=== PATIENT | female | born 1950 | race Caucasian/White ===

== ENCOUNTER 2016-08-29 01:09 | Inpatient (IN) | payer OTHER ==
[~2016-08-29] VITALS: Ht 172.7 cm; Wt 50.8 kg
[2016-08-29 07:12] LABS: ABSOLUTE BASOPHIL COUNT 0 /CUMM (0.0-0.2); ABSOLUTE EOSINOPHIL COUNT 0.1 /CUMM (0.0-0.7); ABSOLUTE GRANULOCYTE CT 3.8 /CUMM (1.4-6.5); ABSOLUTE LYMPH COUNT 0.4 /CUMM (1.2-3.4); ABSOLUTE MONOCYTE COUNT 0.5 /CUMM (0.10-0.60); BASOPHIL % 0.3 % (0.0-2.0); EOSINOPHIL % 1.9 % (0-5); GRANULOCYTE % 78.6 % (42.2-75.2); HEMATOCRIT 33.7 % (37-47); MEAN CORPUSCULAR HGB 27.9 PG (27.0-31.0); MEAN CORPUSCULAR HGB CONC 33.6 G/DL (33.0-37.0); MEAN PLATELET VOLUME 8.8 FL (7.4-10.4); PLATELET COUNT 93 /CUMM (130-400); RBC DISTRIBUTION WIDTH 16.8 % (11.5-14.5); RED BLOOD CELL CT 4.07 /CUMM (4.20-5.40); WHITE BLOOD CELL COUNT 4.8 /CUMM (4.8-10.8)
[2016-08-29 12:35] LABS: ABSOLUTE BASOPHIL COUNT 0 /CUMM (0.0-0.2); ABSOLUTE EOSINOPHIL COUNT 0 /CUMM (0.0-0.7); ABSOLUTE GRANULOCYTE CT 3.7 /CUMM (1.4-6.5); ABSOLUTE LYMPH COUNT 0.3 /CUMM (1.2-3.4); ABSOLUTE MONOCYTE COUNT 0.2 /CUMM (0.10-0.60); BASOPHIL % 0.2 % (0.0-2.0); EOSINOPHIL % 0.6 % (0-5); GRANULOCYTE % 86.7 % (42.2-75.2); HEMATOCRIT 32.1 % (37-47); MEAN CORPUSCULAR HGB 27.9 PG (27.0-31.0); MEAN CORPUSCULAR HGB CONC 33.7 G/DL (33.0-37.0); MEAN CORPUSCULAR VOLUME 82.7 FL (81.0-99.0); MEAN PLATELET VOLUME 8.1 FL (7.4-10.4); PLATELET COUNT 86 /CUMM (130-400); RBC DISTRIBUTION WIDTH 17.2 % (11.5-14.5); RED BLOOD CELL CT 3.88 /CUMM (4.20-5.40); WHITE BLOOD CELL COUNT 4.2 /CUMM (4.8-10.8)
--- NOTE | 2016-08-29 13:20 | PN- General Surgery ---
Subjective Subjective: Postop check: I was called by the PACU nurse regarding patient's condition. She is diaphoretic, having palpitations, heart rate in the 130s and appeared irregular on the monitor after having an uneventful operative course. I evaluated the patient, she denies any chest pain. She does feel lightheaded and weak and noted intermittent palpitations. Patient states that she has been having palpitations while at rest intermittently for about a week, she has not seen or mentioned this to her primary care doctor previously. Her preop EKG was reviewed which was done this morning at our facility at 7 AM which shows A. fib/ flutter, 98 bpm, abnormal T waves diffusely. There are no previous EKGs available for comparison. Stat labs were ordered and stat EKG was ordered as well performed at 12:20 PM, sinus tachycardia at 120 bpm, questionable A. fib versus MAT with diffuse abnormal T waves. Patient received 1 L of IV fluids intraoperatively and is getting another liter in the recovery room, current blood pressure is 98/48, her symptoms improved while Trendelenburged. She was placed on a campus monitor in the postanesthesia care unit and her heart rate was noted to be in the high 70s to mid 80s and a normal sinus rhythm and then suddenly increased to 1:30/140 range and appeared irregular which correlated with patient's symptoms. The rapid irregular heartbeat is intermittent only lasted for 5-7 seconds and then resolves Objective Vital Signs and I&Os Intake & Output 08/29 1600 08/29 0800 08/29 0000 08/28 1600 08/28 0800 08/28 0000 Intake Total Output Total Balance Patient 105 lb Weight Physical Exam: Well-developed well-nourished no apparent distress. HEENT: Atraumatic, extraocular motion intact Neck: Supple, no lymphadenopathy Respiratory: No respiratory distress Heart: Regular rate and rhythm with periods of irregularity Abdomen: Midline incisional dressing is clean dry and intact, hypoactive bowel sounds Extremities: No edema, no calf pain Neuro: Alert and oriented x3 Psych: Mood affect normal, normal memory normal judgment. Skin: Diaphoretic, no rash Assessment/Plan Assessment/Plan Postop day #0 status post open ventral/incisional hernia repair, complicated by tachycardic arrhythmia, questionable new onset intermittent A. fib versus MAT. Patient may have had a recent history of this which was exacerbated by stress from the surgery. Discussed with cardiology, Dr. Bib Toth, recommends echo and he will consult on the patient, recommends telemetry monitoring at least overnight. We will admit the patient to telemetry Regular diet Pain medication as needed Reenforce dressing as needed and change postop day 2 Continue IV fluids until tolerating adequate by mouth Heparin for DVT prophylaxis Dw Dr Long Core Measures/Miscellaneous Venous Thromboembolism VTE Risk Factors: Age > 40, Surgery VTE Contraindications: No Contraindications VTE Diagnosis: No Beta Diogo Is Beta Diogo a Home Med? No Antibiotics Is Patient on Antibiotics? No
[2016-08-29 15:31] VITALS: BP 80/40
[2016-08-29 17:09] VITALS: BP 82/48
[2016-08-29 19:00] VITALS: BP 80/48
[2016-08-29 21:02] VITALS: BP 90/50
--- NOTE | 2016-08-29 21:02 | NUR ---
INFORMED SURGICAL PA CORONA THAT PT HAS HAD APPOX 600 ML INTAKE OF FLUIDS THUS FAR S/P SURGERY. VOIDING ADEQUATELY IN TOILET. PER SURGICAL PA, WILL KEEP IVF UNTIL AM DUE TO HYPOTENSION (SBP HAS BEEN 80-90).
--- NOTE | 2016-08-29 21:03 | Admission Core Measures ---
Admission Lab Results I reviewed the following labs: Laboratory Tests 08/29 08/29 1223 0649 Chemistry Sodium (137 - 145 mmol/L) 137 Potassium (3.5 - 5.1 mmol/L) 3.9 Chloride (98 - 107 mmol/L) 102 Carbon Dioxide (22 - 30 mmol/L) 26 Anion Gap (5 - 16) 10 BUN (7 - 17 mg/dL) 19 H Creatinine (0.5 - 1.0 mg/dL) 0.8 Estimated GFR (>60 ml/min) > 60 BUN/Creatinine Ratio (7 - 25 %) 23.8 Troponin I (< 0.11 ng/ml) < 0.01 TSH (0.270 - 4.200 uIU/mL) 4.370 H Thyroxine (T4) (4.5 - 10.9 ug/dL) 14.0 H Total T3 (0.97 - 1.69 ng/mL) Pending Hematology CBC w Diff MAN DIFF ORDERED NO MAN DIFF REQ WBC (4.8 - 10.8 /CUMM) 4.2 L 4.8 RBC (4.20 - 5.40 /CUMM) 3.88 L 4.07 L Hgb (12.0 - 16.0 G/DL) 10.8 L 11.3 L Hct (37 - 47 %) 32.1 L 33.7 L MCV (81.0 - 99.0 FL) 82.7 83.0 MCH (27.0 - 31.0 PG) 27.9 27.9 RDW (11.5 - 14.5 %) 17.2 H 16.8 H Plt Count (130 - 400 /CUMM) 86 L 93 L MPV (7.4 - 10.4 FL) 8.1 8.8 Gran % (42.2 - 75.2 %) 86.7 H 78.6 H Lymphocytes % (20.5 - 51.1 %) 7.9 L 9.1 L Monocytes % (1.7 - 9.3 %) 4.6 10.1 H Eosinophils % (0 - 5 %) 0.6 1.9 Basophils % (0.0 - 2.0 %) 0.2 0.3 Absolute Granulocytes (1.4 - 6.5 /CUMM) 3.7 3.8 Segmented Neutrophils (42.2 - 75.2 %) 66 Band Neutrophils (0.0 - 5.0 %) 16 H Absolute Lymphocytes (1.2 - 3.4 /CUMM) 0.3 L 0.4 L Lymphocytes (20.5 - 51.1 %) 9 L Monocytes (1.7 - 9.3 %) 9 Absolute Monocytes (0.10 - 0.60 /CUMM) 0.2 0.5 Absolute Eosinophils (0.0 - 0.7 /CUMM) 0 0.1 Absolute Basophils (0.0 - 0.2 /CUMM) 0 0 Platelet Estimate (ADEQUATE) DECREASED Anisocytosis 1+ PUBS MCHC (33.0 - 37.0 G/DL) 33.7 33.6 Admission Meds I reviewed the following Meds: Current Medications Sig/Monisha Start time Last Medication Dose Stop Time Status Admin Acetaminophen/ 1 TAB Q4P PRN 08/29 1530 AC 08/29 Hydrocodone Bitart 2056 (Vicodin) Acetaminophen/ 2 TAB Q4P PRN 08/29 1530 AC Hydrocodone Bitart (Vicodin) Alprazolam 0.5 MG TID PRN 08/29 1600 AC (Xanax) 09/05 155 Dextrose/Sodium 1,000 ML .[id number] 08/29 1530 AC 08/29 Chloride 1530 (D5-Normal Saline) Docusate Sodium 100 MG DAILY NEEDED PRN 08/29 153 AC (Colace) Heparin Sodium 5,000 UNIT Q8 08/29 220 AC 08/29 (Porcine) 2050 Ibuprofen 400 MG Q6P PRN 08/29 1345 AC (Motrin) Ketorolac 15 MG Q8P PRN 08/29 1530 AC 08/29 Tromethamine 1827 (Toradol) Morphine Sulfate 2 MG Q1P PRN 08/29 1530 AC 08/29 (Morphine) 1602 Ondansetron HCl 4 MG Q6P PRN 08/29 1530 AC (Zofran) Polyethylene Glycol 17 GM DAILY NEEDED PRN 08/29 153 AC (Miralax) Promethazine HCl 12.5 MG Q6P PRN 08/29 1530 AC (Phenergen) 09/05 1329 Senna 374 MG AT BEDTIME NEED.. 08/29 153 AC (Senokot) Zolpidem Tartrate 10 MG AT BEDTIME NEED.. 08/29 220 AC (Ambien) Acute Coronary Syndrome Inclusion Criteria ACS Diagnosis No Inpatient Core Measures LDL Reminder: If No, please order W/I first 24hr of stay Congestive Heart Failure Inclusion Criteria CHF Diagnosis No Cerebrovascular accident Inclusion Criteria CVA/TIA Diagnosis No Inpatient Core Measures Bedside Swallow Eval Reminder: If BSE failed, place ST order Antithrombotic Reminder: Order Antithrombotic Medication by end of day 2 Antithrombotic Reminder: Document Reason Antithrombotic Not ordered by end of day 2 AFIB/Flutter Reminder: If Present, add to problem list AFIB/Flutter Reminder: Order Anticoag Medication for pts with AFIB/Flutter Atherosclerosis Reminder: If Present, add to problem list LDL Reminder: If No, please order W/I first 24hr of stay PT Order Reminder: If No, please order Venous thromboembolism Inpatient Core Measures VTE Risk Factors: Age > 40, [facility] prophylaxis d/t No contraindications No VTE Pharm Prophylaxis d/t No contraindications Inclusion Criteria - Per Current guidelines, there needs to be overlap - treatment for the first 5 days of Warfarin therapy. - Parenteral Anticoagulation (IV or SC) needs to be - given along with Warfarin therapy. VTE Diagnosis No VTE Type NONE VTE Confirmed by (Test) NONE Problem List As ranked by this Provider includes Assessment & Plan 1. Ventral hernia 2. Arrhythmia, atrial
--- NOTE | 2016-08-29 21:06 | Patient Discharge Instructions ---
Discharge Instructions General Discharge Information You were seen/treated for: Open ventral hernia repair with mesh Admission for cardiac arrhythmia You had these procedures: See above Watch for these problems: Worsening abdominal pain, nausea, vomiting, fever greater than 101, discharge from the wound, redness around the wound or tenderness around the wound. Chest pain palpitations feeling as if you're going to pass out Call Surgeon to remove: [place] (10 days) Do not soak the wound: Yes No bath, but you may shower: Yes Other wound care: Daily dry sterile dressing changes Special Instructions: Please follow up with DR. Coty Ferrer for thyroid studies, please have blood work done prior to seeing her. Blood work should be done on 09/07/2016. Please contact DR. Reese Marcus for cardiology follow up. At time of discharge, please contact his office to arrange this appointment. Diet Continue normal diet: Yes Activity Full Activity/No Limits: No Activity Self Limited: Yes Pounds, do NOT lift more than: 10 Acute Coronary Syndrome Inclusion Criteria At DC or during hospital stay patient has or had the following: ACS DIAGNOSIS No Discharge Core Measures Meds if any: Prescribed or Continued at Discharge Meds if any: NOT Prescribed or Continued at Discharge Congestive Heart Failure Inclusion Criteria At DC or during hospital stay patient has or had the following: CHF DIAGNOSIS No Discharge Core Measures Meds if any: Prescribed or Continued at Discharge Meds if any: NOT Prescribed or Continued at Discharge Cerebrovascular accident Inclusion Criteria At DC or during hospital stay patient has or had the following: CVA/TIA Diagnosis No Discharge Core Measures Meds if any: Prescribed or Continued at Discharge Meds if any: NOT Prescribed or Continued at Discharge Venous thromboembolism Inclusion Criteria VTE Diagnosis No VTE Type NONE VTE Confirmed by (Test) NONE Discharge Core Measures - Per Current guidelines, there needs to be overlap - treatment for the first 5 days of Warfarin therapy. - If discharged on Warfarin prior to 5 days of - overlap therapy, the patient will need to be - assessed for post discharge needs including - *Post discharge parental anticoagulation - *Warfarin and/or parental anticoagulation education - *Follow up date to check INR post discharge At least 5 days overlap therapy as Inpatient No Meds if any: Prescribed or Continued at Discharge Note: Overlap Therapy is Warfarin and Anticoagulant Meds if any: NOT Prescribed or Continued at Discharge
[2016-08-29] MEDS ORDERED: XANAX0.5 M1 PO (21:07)
[2016-08-29] MEDS ORDERED: AMBIEN10 M1 PO (21:07)
[2016-08-29 23:49] VITALS: BP 80/60
--- NOTE | 2016-08-30 00:34 | NUR ---
PATIENT HEART RATE 110-118, VSS, AFEBRILE, DENIES ANY PAIN. REPORTS HISTORY OF ANXIETY AND THAT SHE FEELS ANXIOUS AT CURRENT. NOTED THAT PATIENT TAKES AMBIEN AT BEDTIME FOR SLEEP, PREFERS TO TAKE AMBIEN INSTEAD OF ALPRAZOLAM AT THIS TIME. AMBIEN GIVEN, HEART DECREASING TO 90S. WILL CONTINUE TO MONITOR
--- NOTE | 2016-08-30 00:45 | NUR ---
SURGICAL SHE JETER MADE AWARE OF PATIENT'S ELEVATED HEART RATE. NO CHANGES AT THIS TIME
[2016-08-30 04:03] VITALS: BP 96/52
--- NOTE | 2016-08-30 05:21 | NUR ---
SURG SHE BABB AT BEDSIDE, ADMINISTERD 5MG IV LOPRESSOR FOR HEART RATE 110S-120S. RATE NOW 100-110 AFTER ADMINISTRATION. PATIENT IS ASYMPTOMATIC, SHE STATES THAT HEART RATE OK IF <120, CALL IF HR >120BPM. EKG PERFORMED WHICH SHOWS NSR. NO CHANGES TO POC AT THIS TIME, WILL CONTIUE TO MONITOR.
--- NOTE | 2016-08-30 05:42 | PN- General Surgery ---
See Addendum Subjective Subjective: No acute events overnight until approximately 4:40 AM, I was called by the nurse due to sudden onset of tachycardia and a 10-12 beat run of nonsustained V. tach. this was reviewed on the rhythm strip by myself. An EKG was ordered stat. Patient was evaluated, she remained asymptomatic throughout the night. She denies any palpitations, chest pain, nausea, vomiting or diaphoresis Objective Vital Signs and I&Os Vital Signs Date Time Temp Pulse Resp B/P B/P Pulse O2 O2 Flow FiO2 Mean Ox Delivery Rate 08/30 0403 97.8 112 18 96/52 97 Nasal 2.0L Cannula 08/30 0000 96 Nasal 2.0L Cannula 08/29 2349 99.1 111 16 80/60 93 Room Air 08/29 2102 98.1 115 16 90/50 92 Room Air 08/29 1900 98.7 108 18 80/48 95 08/29 1709 97.8 71 16 82/48 95 Nasal 2.0L Cannula 08/29 1531 97.4 86 20 80/40 99 Nasal 4.0L Cannula 08/29 1500 95 Nasal 2.0L Cannula Intake & Output 08/30 0800 08/30 0000 08/29 1600 08/29 0800 08/29 0000 08/28 1600 Intake Total 1200 Output Total 3 Balance 1197 Intake, IV 600 Intake, Oral 600 Output, Other 3 Patient 112 lb 105 lb Weight Weight Reported by Patient Measurement Method Physical Exam: Well-developed well-nourished no apparent distress. HEENT: Atraumatic, extraocular motion intact Neck: Supple, no lymphadenopathy Heart: Tachycardic, slightly irregular Respiratory: No respiratory distress, lungs clear to auscultation Abdomen: Soft, moderate incisional tenderness, nondistended, hypoactive bowel sounds, small amount of staining noted on the dressing Extremities: No edema, no calf pain Neuro: Alert and oriented x3 Psych: Mood affect normal, normal memory normal judgment. Skin: Warm and dry, no rash on exposed skin Results Last 48 Hours of Labs: Laboratory Tests 08/29 08/29 1223 0649 Chemistry Sodium (137 - 145 mmol/L) 137 Potassium (3.5 - 5.1 mmol/L) 3.9 Chloride (98 - 107 mmol/L) 102 Carbon Dioxide (22 - 30 mmol/L) 26 Anion Gap (5 - 16) 10 BUN (7 - 17 mg/dL) 19 H Creatinine (0.5 - 1.0 mg/dL) 0.8 Estimated GFR (>60 ml/min) > 60 BUN/Creatinine Ratio (7 - 25 %) 23.8 Troponin I (< 0.11 ng/ml) < 0.01 TSH (0.270 - 4.200 uIU/mL) 4.370 H Thyroxine (T4) (4.5 - 10.9 ug/dL) 14.0 H Total T3 (0.97 - 1.69 ng/mL) 1.01 Hematology CBC w Diff MAN DIFF ORDERED NO MAN DIFF REQ WBC (4.8 - 10.8 /CUMM) 4.2 L 4.8 RBC (4.20 - 5.40 /CUMM) 3.88 L 4.07 L Hgb (12.0 - 16.0 G/DL) 10.8 L 11.3 L Hct (37 - 47 %) 32.1 L 33.7 L MCV (81.0 - 99.0 FL) 82.7 83.0 MCH (27.0 - 31.0 PG) 27.9 27.9 RDW (11.5 - 14.5 %) 17.2 H 16.8 H Plt Count (130 - 400 /CUMM) 86 L 93 L MPV (7.4 - 10.4 FL) 8.1 8.8 Gran % (42.2 - 75.2 %) 86.7 H 78.6 H Lymphocytes % (20.5 - 51.1 %) 7.9 L 9.1 L Monocytes % (1.7 - 9.3 %) 4.6 10.1 H Eosinophils % (0 - 5 %) 0.6 1.9 Basophils % (0.0 - 2.0 %) 0.2 0.3 Absolute Granulocytes (1.4 - 6.5 /CUMM) 3.7 3.8 Segmented Neutrophils (42.2 - 75.2 %) 66 Band Neutrophils (0.0 - 5.0 %) 16 H Absolute Lymphocytes (1.2 - 3.4 /CUMM) 0.3 L 0.4 L Lymphocytes (20.5 - 51.1 %) 9 L Monocytes (1.7 - 9.3 %) 9 Absolute Monocytes (0.10 - 0.60 /CUMM) 0.2 0.5 Absolute Eosinophils (0.0 - 0.7 /CUMM) 0 0.1 Absolute Basophils (0.0 - 0.2 /CUMM) 0 0 Platelet Estimate (ADEQUATE) DECREASED Anisocytosis 1+ PUBS MCHC (33.0 - 37.0 G/DL) 33.7 33.6 Assessment/Plan Assessment/Plan Postoperative day #1 status post open ventral hernia repair, complicated by postoperative arrhythmia, A. fib versus MAT. Patient currently asymptomatic and did not have any significant arrhythmias overnight until a run of nonsustained V. tach and persistent tachycardia to approximately 120 bpm afterwards. Stat EKG shows sinus tachycardia at 118, nonspecific ST-T wave changes, no sniffing a change from previous EKG. There are abnormal and consistent P waves throughout her EKG which raised the suspicion for A. fib versus MAT. She was given 5 mg of Lopressor IV push by myself at the bedside, heart rate remained in the 90-110 range after this and patient remained asymptomatic, appears to be more of a sinus rhythm on the rhythm strip. We'll continue to monitor. Cardiology consult pending, echocardiogram pending, discussed with Dr. Toth Abnormal thyroid function testing with tachycardia: Endocrine consult pending, discussed with Dr. helton Regular diet Heparin subcutaneous GI prophylaxis Pain medication as needed DC IV fluids Dressing change tomorrow Continue telemetry monitoring Core Measures/Miscellaneous Venous Thromboembolism VTE Risk Factors: Age > 40, Surgery VTE Contraindications: No Contraindications VTE Diagnosis: No VTE Type: NONE VTE Confirmed by (Test): NONE Beta Diogo Is Beta Diogo a Home Med? No Antibiotics Is Patient on Antibiotics? No
--- NOTE | 2016-08-30 08:06 | ECHOCARDIOGRAM REPORT ---
ROHAN GREY Age: 65 : 1950 Gender: F Exam Date: 08/29/2016 18:50 Exam Location: [address] Ht (in): 68 Wt (lb): 105 BSA: 1.49 BP: 82 / 48 Ordering Physician: ONUR BABB PA Referring Physician: ONUR BABB PA Technologist: Agustina Castillo [facility] Room Number: [id number] Indications: ARRHYTHMIAS Rhythm: Sinus Technical Quality: good FINDINGS Left Ventricle Normal global left ventricular size, wall thickness, systolic function with no obvious regional wall motion abnormalities. Right Ventricle Normal right ventricular size and function. Right Atrium Normal right atrial size. Left Atrium Normal left atrial size. Mitral Valve Mitral valve normal in structure and function. Trace to mild mitral regurgitation. Aortic Valve Aortic valve is normal in structure and function. Tricuspid Valve Tricuspid valve is normal in structure and function. Trace to mild tricuspid regurgitation. Right ventricular systolic pressure estimated to be at upper limits of normal at 35 mmHg. Pulmonic Valve Pulmonic valve not well visualized, grossly normal. Pericardium No pericardial effusion. Great Vessels Normal size aortic root. CONCLUSIONS Normal left and right ventricular systolic function. No significant valvular abnormalities noted. Andrew Acosta M.D. (Electronically Signed) Final Date: 30 August 2016 08:05 MEASUREMENTS (Male / Female) Normal Values 2D ECHO LV Diastolic Diameter PLAX 3.4 cm 4.2 - 5.9 / 3.9 - 5.3 cm LV Systolic Diameter PLAX 2.2 cm 2.1 - 4.0 cm LV Fractional Shortening PLAX 35.3 % 25 - 46 % LV Ejection Fraction 2D Teich 65.8 % IVS Diastolic Thickness 0.9 cm LVPW Diastolic Thickness 0.9 cm LV Relative Wall Thickness 0.5 RV Internal Dim ED PLAX 2.5 cm 1.9 - 3.8 cm LVOT Diameter 2.1 cm Aortic Root Diameter 3.0 cm LA Systolic Diameter LX 2.8 cm 3.0 - 4.0 / 2.7 - 3.8 cm LA Volume 32.0 cm 18 - 58 / 22 - 52 cm DOPPLER AV Peak Velocity 155.0 cm/s AV Peak Gradient 9.6 mmHg AV Mean Velocity 104.0 cm/s AV Mean Gradient 5.0 mmHg AV Velocity Time Integral 27.1 cm LVOT Peak Velocity 138.0 cm/s LVOT Peak Gradient 7.6 mmHg LVOT Mean Velocity 89.4 cm/s LVOT Mean Gradient 4.0 mmHg LVOT Velocity Time Integral 22.5 cm LVOT Stroke Volume 77.9 cm AV Area Cont Eq vti 2.9 cm AV Area Cont Eq pk 3.1 cm MV Peak Velocity 86.9 cm/s MV Peak Gradient 3.0 mmHg MV Mean Velocity 55.9 cm/s MV Mean Gradient 1.0 mmHg Mitral E Point Velocity 71.1 cm/s Mitral A Point Velocity 69.6 cm/s Mitral E to A Ratio 1.0 MV PHT Velocity 90.3 cm/s MV Deceleration [place] 353.0 cm/s MV Pressure Half Time 76.7 ms MV Area PHT 2.9 cm MV Deceleration Time 232.0 ms TR Peak Velocity 254.0 cm/s TR Peak Gradient 25.8 mmHg Right Atrial Pressure 5.0 mmHg Pulmonary Artery Systolic Pressu 30.8 mmHg Right Ventricular Systolic Press 30.8 mmHg LV E' Lateral Velocity 16.4 cm/s Mitral E to LV E' Lateral Ratio 4.3 LV E' Septal Velocity 11.9 cm/s Mitral E to LV E' Septal Ratio 6.0
[2016-08-30 08:12] VITALS: BP 92/54
--- NOTE | 2016-08-30 08:39 | Event Note ---
Event Note Event Note: See SHE Hernandez's note from this am. Pt in sinus rhythm, but tachy in 110s. Denies palpations, cp, sob, gallegos, dizziness. Says she feels slightly anxious and takes xanax at home "when this happens". Will give home dose xanax now. Dr. Toth's service recontacted to ensure consult received. May need additional IV cardiac meds to control heart rate if anxiolytic is no help. will closely follow on tele.
--- NOTE | 2016-08-30 09:33 | Cons- Endocrinology ---
General Information and HPI Consulting Request Date of Consult: 08/30/16 Requested By: surgical team Reason for Consult: abnormal thyroid function. Source of Information: patient, old records Exam Limitations: no limitations History of Present Illness: Patient underwent open ventral hernia repair on 08/29/2016 which is complicated by postoperative arrhythmia, A. fib versus MAT. Patient currently is asymptomatic. However, she had a run of nonsustained V. tach and persistent tachycardia to approximately 120 bpm afterwards this yolk spray drier. Blood work showed TSH 4.370, T4 14 and TT3 1.01. She doesn't have hx of thyroid disorders or positive family hx of thyroid disorders. But she has lost approximately 15 pounds over the winter without significant reason. Repeat TFT done this morning showed TSH 8.5, free T4 1.56 and TT3 1.02. Allergies/Medications Allergies: Coded Allergies: NO KNOWN ALLERGIES (10/20/13) NKDA PER ANTIBIOTIC ORDER SHEET OF 10/20/13 ([facility]) Home Med List: Alprazolam (Xanax) 0.5 MG TABLET 1 TAB PO TIDPRN PRN anxiety (Reported) Zolpidem Tartrate (Ambien) 10 MG TABLET 1 TAB PO QPMP PRN insomina (Reported) Review of Systems Review of Systems Constitutional: Reports: see HPI, unexplained weight loss. Cardiovascular: Reports: palpitations. Respiratory: Denies: short of breath. GI: Denies: abdominal pain. Genitourinary: Denies: discharge. Musculoskeletal: Denies: back pain. Hematologic/Endocrine: Reports: see HPI. 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 Home Services at Home: None Smoking Status: Current Everyday Smoker Exam & Diagnostic Data Last 24 Hrs of Vital Signs/I&O Vital Signs Date Time Temp Pulse Resp B/P B/P Pulse O2 O2 Flow FiO2 Mean Ox Delivery Rate 08/30 0812 99.1 116 18 92/54 92 Room Air 08/30 0542 120 96/54 08/30 0403 97.8 112 18 96/52 97 Nasal 2.0L Cannula 08/30 0000 96 Nasal 2.0L Cannula 08/29 2349 99.1 111 16 80/60 93 Room Air 08/29 2102 98.1 115 16 90/50 92 Room Air 08/29 1900 98.7 108 18 80/48 95 08/29 1709 97.8 71 16 82/48 95 Nasal 2.0L Cannula 08/29 1531 97.4 86 20 80/40 99 Nasal 4.0L Cannula 08/29 1500 95 Nasal 2.0L Cannula Intake & Output 08/30 1600 08/30 0800 08/30 0000 Intake Total 1200 1200 Output Total 700 3 Balance 500 1197 Intake, IV 600 600 Intake, Oral 600 600 Output, Other 3 Output, Urine 700 Physical Exam General Appearance: no apparent distress Neck: no thyromegaly Respiratory: lungs clear Cardiovascular: tachycardia Gastrointestinal: soft, non-tender Extremities: no edema Labs/Pablo Results: Laboratory Tests 08/30 08/30 08/30 0855 0610 0600 Chemistry Sodium Pending Potassium Pending Chloride Pending Carbon Dioxide Pending Anion Gap Pending BUN Pending Creatinine Pending BUN/Creatinine Ratio Pending Phosphorus Pending Magnesium Pending Troponin I (< 0.11 ng/ml) < 0.01 Cancelled TSH (0.270 - 4.200 uIU/mL) 8.500 H Free T4 (0.78 - 2.44 ng/dL) 1.56 Total T3 (0.97 - 1.69 ng/mL) 1.02 Hematology CBC w Diff Pending WBC Pending RBC Pending Hgb Pending Hct Pending MCV Pending MCH Pending RDW Pending Plt Count Pending MPV Pending PUBS MCHC Pending Immunology Thyroglobulin Antibody (< 61 U/mL) < 15 Thyroid Peroxidase Ab (< 61 U/mL) < 28 08/29 1223 Chemistry Sodium (137 - 145 mmol/L) 137 Potassium (3.5 - 5.1 mmol/L) 3.9 Chloride (98 - 107 mmol/L) 102 Carbon Dioxide (22 - 30 mmol/L) 26 Anion Gap (5 - 16) 10 BUN (7 - 17 mg/dL) 19 H Creatinine (0.5 - 1.0 mg/dL) 0.8 Estimated GFR (>60 ml/min) > 60 BUN/Creatinine Ratio (7 - 25 %) 23.8 Troponin I (< 0.11 ng/ml) < 0.01 TSH (0.270 - 4.200 uIU/mL) 4.370 H Thyroxine (T4) (4.5 - 10.9 ug/dL) 14.0 H Total T3 (0.97 - 1.69 ng/mL) 1.01 Hematology CBC w Diff MAN DIFF ORDERED WBC (4.8 - 10.8 /CUMM) 4.2 L RBC (4.20 - 5.40 /CUMM) 3.88 L Hgb (12.0 - 16.0 G/DL) 10.8 L Hct (37 - 47 %) 32.1 L MCV (81.0 - 99.0 FL) 82.7 MCH (27.0 - 31.0 PG) 27.9 RDW (11.5 - 14.5 %) 17.2 H Plt Count (130 - 400 /CUMM) 86 L MPV (7.4 - 10.4 FL) 8.1 Gran % (42.2 - 75.2 %) 86.7 H Lymphocytes % (20.5 - 51.1 %) 7.9 L Monocytes % (1.7 - 9.3 %) 4.6 Eosinophils % (0 - 5 %) 0.6 Basophils % (0.0 - 2.0 %) 0.2 Absolute Granulocytes (1.4 - 6.5 /CUMM) 3.7 Segmented Neutrophils (42.2 - 75.2 %) 66 Band Neutrophils (0.0 - 5.0 %) 16 H Absolute Lymphocytes (1.2 - 3.4 /CUMM) 0.3 L Lymphocytes (20.5 - 51.1 %) 9 L Monocytes (1.7 - 9.3 %) 9 Absolute Monocytes (0.10 - 0.60 /CUMM) 0.2 Absolute Eosinophils (0.0 - 0.7 /CUMM) 0 Absolute Basophils (0.0 - 0.2 /CUMM) 0 Platelet Estimate (ADEQUATE) DECREASED Anisocytosis 1+ PUBS MCHC (33.0 - 37.0 G/DL) 33.7 Assessment/Plan Assessment/Plan Patient underwent open ventral hernia repair on 08/29/2016 which is complicated by postoperative arrhythmia, A. fib versus MAT. Patient currently is asymptomatic. However, she had a run of nonsustained V. tach and persistent tachycardia to approximately 120 bpm afterwards this yolk spray drier. Blood work showed TSH 4.370, T4 14 and TT3 1.01. Repeat TFT done this morning showed TSH 8.5, free T4 1.56 and TT3 1.02 and her thyroid antibody panel is negative. She doesn't have hx of thyroid disorders or positive family hx of thyroid disorders. But she has lost approximately 15 pounds over the winter without significant reason. The abnormal TFT suggests either sick euthyroid changes vs primary hypothyroidism. At this point, the abnormal TFT is not the cause of patient's arrhythmia. However, I will continue monitoring TFT in 2-3 days to look for a trend. Consult Acknowledgment - Thank you for your consult request.
[2016-08-30 10:57] LABS: ABSOLUTE BASOPHIL COUNT 0 /CUMM (0.0-0.2); ABSOLUTE EOSINOPHIL COUNT 0.1 /CUMM (0.0-0.7); ABSOLUTE GRANULOCYTE CT 3.6 /CUMM (1.4-6.5); ABSOLUTE LYMPH COUNT 0.5 /CUMM (1.2-3.4); ABSOLUTE MONOCYTE COUNT 0.3 /CUMM (0.10-0.60); BASOPHIL % 0.2 % (0.0-2.0); EOSINOPHIL % 2.5 % (0-5); GRANULOCYTE % 79.6 % (42.2-75.2); MEAN CORPUSCULAR HGB 27.7 PG (27.0-31.0); MEAN CORPUSCULAR HGB CONC 33.8 G/DL (33.0-37.0); MEAN CORPUSCULAR VOLUME 82.1 FL (81.0-99.0); MEAN PLATELET VOLUME 9.3 FL (7.4-10.4); PLATELET COUNT 89 /CUMM (130-400); RBC DISTRIBUTION WIDTH 16.3 % (11.5-14.5); RED BLOOD CELL CT 3.65 /CUMM (4.20-5.40); WHITE BLOOD CELL COUNT 4.5 /CUMM (4.8-10.8)
--- NOTE | 2016-08-30 11:26 | Cons- Cardiology ---
General Information and HPI Consulting Request Date of Consult: 08/30/16 Requested By: MACY KATE,RAJEEV Younger Reason for Consult: Atrial fibrillation Source of Information: patient, old records Exam Limitations: no limitations History of Present Illness: The patient is a 65-year-old woman with a past medical history of CAD, tuberculosis, fibromyalgia and depression. She presented for a ventral hernia repair which she underwent on 08/29/2016; however, was noted to have paroxysms of a rapid irregular heart rate afterwards. The patient was subsequently transferred to telemetry and noted to have frequent paroxysms of likely multifocal atrial tachycardia as well as atrial fibrillation with heart rate responses of 120s. From a cardiac standpoint, the patient states she has had palpitations, productive mainly at rest past several years. Episodes last for several seconds and sedated with chest pains, dyspnea nor significant lightheadedness. She is otherwise active, states performing activity of greater than 6 METs equivalents (swimming, exercising, stairclimbing) without difficulty. She has not carried a diagnosis of atrial fibrillation in the past. The patient otherwise denies recent use of [id number] supplements or stimulating agents. She was noted to have a mild rise in TSH (8.5); however, following an endocrinology consult, this was not felt to be the cause of her fibrillation. The patient was given IV metoprolol due to underlying tachycardia and then reverted to sinus rhythm with a controlled heart rate. Allergies/Medications Allergies: Coded Allergies: NO KNOWN ALLERGIES (10/20/13) NKDA PER ANTIBIOTIC ORDER SHEET OF 10/20/13 ([facility]) Home Med List: Alprazolam (Xanax) 0.5 MG TABLET 1 TAB PO TIDPRN PRN anxiety (Reported) Zolpidem Tartrate (Ambien) 10 MG TABLET 1 TAB PO QPMP PRN insomina (Reported) Current Medications: Current Medications Sig/Monisha Start time Last Medication Dose Route Stop Time Status Admin Acetaminophen/ 1 TAB Q4P PRN 08/29 1530 AC 08/29 Hydrocodone Bitart PO 2056 Acetaminophen/ 2 TAB Q4P PRN 08/29 1530 AC Hydrocodone Bitart PO Alprazolam 0.5 MG TID PRN 08/29 1600 AC 08/30 PO 09/05 1559 0858 Cefazolin Sodium 1,000 MG ONCE 08/29 0000 DC IV 08/29 2359 Dextrose/Sodium 1,000 ML .[id number] 08/29 1530 DC 08/30 Chloride IV 0406 Docusate Sodium 100 MG DAILY NEEDED PRN 08/29 1530 AC PO Heparin Sodium 5,000 UNIT Q8 08/29 2200 AC 08/30 (Porcine) SC 0601 Hydromorphone HCl 2 MG .STK-MED ONE 08/29 1315 DC IM 08/29 1316 Ibuprofen 400 MG Q6P PRN 08/29 1345 AC PO Ketorolac 15 MG Q8P PRN 08/29 1530 AC 08/29 Tromethamine IV 1827 Metoprolol Tartrate 25 MG BID 08/30 1030 AC PO Metoprolol Tartrate 5 MG ONCE ONE 08/30 0545 DC 08/30 IV 08/30 0546 0542 Morphine Sulfate 2 MG Q1P PRN 08/29 1530 AC 08/30 IV 0857 Ondansetron HCl 4 MG Q6P PRN 08/29 1530 AC IV Polyethylene Glycol 17 GM DAILY NEEDED PRN 08/29 1530 AC PO Promethazine HCl 12.5 MG Q6P PRN 08/29 1530 AC IV 09/05 1329 Senna 374 MG AT BEDTIME NEED.. 08/29 1530 AC PO Zolpidem Tartrate 10 MG .STK-MED ONE 08/30 0017 DC PO 08/30 0018 Zolpidem Tartrate 10 MG AT BEDTIME NEED.. 08/29 2200 AC 08/30 PO 0017 Review of Systems Review of Systems: The review of systems is negative for chest pains nor lightheadedness. Palpitations are noted as above The remainder of the 14 point review of systems is noncontributory with the exception of above. 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 Home Services at Home: None Smoking Status: Current Everyday Smoker Exam & Diagnostic Data Vital Signs and I&O Vital Signs Date Time Temp Pulse Resp B/P B/P Pulse O2 O2 Flow FiO2 Mean Ox Delivery Rate 08/30 0812 99.1 116 18 92/54 92 Room Air 08/30 0542 120 96/54 08/30 0403 97.8 112 18 96/52 97 Nasal 2.0L Cannula 08/30 0000 96 Nasal 2.0L Cannula 08/29 2349 99.1 111 16 80/60 93 Room Air 08/29 2102 98.1 115 16 90/50 92 Room Air 08/29 1900 98.7 108 18 80/48 95 08/29 1709 97.8 71 16 82/48 95 Nasal 2.0L Cannula 08/29 1531 97.4 86 20 80/40 99 Nasal 4.0L Cannula 08/29 1500 95 Nasal 2.0L Cannula Intake & Output 08/30 1600 08/30 0800 08/30 0000 08/29 1600 08/29 0800 08/29 0000 Intake Total 1200 1200 Output Total 700 3 Balance 500 1197 Intake, IV 600 600 Intake, Oral 600 600 Output, Other 3 Output, Urine 700 Patient 112 lb Weight Weight Reported by Patient Measurement Method Physical Exam: General: Nontoxic, no apparent distress. HEENT: Sclera and conjunctiva within normal limits, without xanthelasmas. Neck: Carotids 2+ without bruits. Respiratory: Clear to auscultation, air movement is good, without accessory respiratory muscle use. Heart: Regular rate and rhythm, without murmurs, without JVD. Abdomen: Soft, nontender, no masses, normoactive bowel sounds. Extremities: Without clubbing, cyanosis, without edema. Neuro: Nonfocal exam, strength, 5 out of 5 Skin: Within normal limits without lesions. Psych: Mood and affect: Normal Labs/Pablo Results: Laboratory Tests 08/30 08/30 08/30 0855 0610 0600 Chemistry Sodium (137 - 145 mmol/L) 135 L Potassium (3.5 - 5.1 mmol/L) 3.9 Chloride (98 - 107 mmol/L) 101 Carbon Dioxide (22 - 30 mmol/L) 27 Anion Gap (5 - 16) 7 BUN (7 - 17 mg/dL) 18 H Creatinine (0.5 - 1.0 mg/dL) 0.8 Estimated GFR (>60 ml/min) > 60 BUN/Creatinine Ratio (7 - 25 %) 22.5 Phosphorus (2.5 - 4.5 mg/dL) 2.8 Magnesium (1.6 - 2.3 mg/dL) 1.1 L Troponin I (< 0.11 ng/ml) < 0.01 Cancelled TSH (0.270 - 4.200 uIU/mL) 8.500 H Free T4 (0.78 - 2.44 ng/dL) 1.56 Total T3 (0.97 - 1.69 ng/mL) 1.02 Hematology CBC w Diff NO MAN DIFF REQ WBC (4.8 - 10.8 /CUMM) 4.5 L RBC (4.20 - 5.40 /CUMM) 3.65 L Hgb (12.0 - 16.0 G/DL) 10.1 L Hct (37 - 47 %) 30.0 L MCV (81.0 - 99.0 FL) 82.1 MCH (27.0 - 31.0 PG) 27.7 RDW (11.5 - 14.5 %) 16.3 H Plt Count (130 - 400 /CUMM) 89 L MPV (7.4 - 10.4 FL) 9.3 Gran % (42.2 - 75.2 %) 79.6 H Lymphocytes % (20.5 - 51.1 %) 10.8 L Monocytes % (1.7 - 9.3 %) 6.9 Eosinophils % (0 - 5 %) 2.5 Basophils % (0.0 - 2.0 %) 0.2 Absolute Granulocytes (1.4 - 6.5 /CUMM) 3.6 Absolute Lymphocytes (1.2 - 3.4 /CUMM) 0.5 L Absolute Monocytes (0.10 - 0.60 /CUMM) 0.3 Absolute Eosinophils (0.0 - 0.7 /CUMM) 0.1 Absolute Basophils (0.0 - 0.2 /CUMM) 0 PUBS MCHC (33.0 - 37.0 G/DL) 33.8 Immunology Thyroglobulin Antibody (< 61 U/mL) < 15 Thyroid Peroxidase Ab (< 61 U/mL) < 28 08/29 08/29 1223 0649 Chemistry Sodium (137 - 145 mmol/L) 137 Potassium (3.5 - 5.1 mmol/L) 3.9 Chloride (98 - 107 mmol/L) 102 Carbon Dioxide (22 - 30 mmol/L) 26 Anion Gap (5 - 16) 10 BUN (7 - 17 mg/dL) 19 H Creatinine (0.5 - 1.0 mg/dL) 0.8 Estimated GFR (>60 ml/min) > 60 BUN/Creatinine Ratio (7 - 25 %) 23.8 Troponin I (< 0.11 ng/ml) < 0.01 TSH (0.270 - 4.200 uIU/mL) 4.370 H Thyroxine (T4) (4.5 - 10.9 ug/dL) 14.0 H Total T3 (0.97 - 1.69 ng/mL) 1.01 Hematology CBC w Diff MAN DIFF ORDERED NO MAN DIFF REQ WBC (4.8 - 10.8 /CUMM) 4.2 L 4.8 RBC (4.20 - 5.40 /CUMM) 3.88 L 4.07 L Hgb (12.0 - 16.0 G/DL) 10.8 L 11.3 L Hct (37 - 47 %) 32.1 L 33.7 L MCV (81.0 - 99.0 FL) 82.7 83.0 MCH (27.0 - 31.0 PG) 27.9 27.9 RDW (11.5 - 14.5 %) 17.2 H 16.8 H Plt Count (130 - 400 /CUMM) 86 L 93 L MPV (7.4 - 10.4 FL) 8.1 8.8 Gran % (42.2 - 75.2 %) 86.7 H 78.6 H Lymphocytes % (20.5 - 51.1 %) 7.9 L 9.1 L Monocytes % (1.7 - 9.3 %) 4.6 10.1 H Eosinophils % (0 - 5 %) 0.6 1.9 Basophils % (0.0 - 2.0 %) 0.2 0.3 Absolute Granulocytes (1.4 - 6.5 /CUMM) 3.7 3.8 Segmented Neutrophils (42.2 - 75.2 %) 66 Band Neutrophils (0.0 - 5.0 %) 16 H Absolute Lymphocytes (1.2 - 3.4 /CUMM) 0.3 L 0.4 L Lymphocytes (20.5 - 51.1 %) 9 L Monocytes (1.7 - 9.3 %) 9 Absolute Monocytes (0.10 - 0.60 /CUMM) 0.2 0.5 Absolute Eosinophils (0.0 - 0.7 /CUMM) 0 0.1 Absolute Basophils (0.0 - 0.2 /CUMM) 0 0 Platelet Estimate (ADEQUATE) DECREASED Anisocytosis 1+ PUBS MCHC (33.0 - 37.0 G/DL) 33.7 33.6 Assessment/Plan Assessment/Plan 65-year-old woman with a past medical history of CAD, tuberculosis, fibromyalgia and depression. She presented for a ventral hernia repair which she underwent on 08/29/2016; however, was noted to have paroxysms of a rapid irregular heart rate afterwards. The patient was subsequently transferred to telemetry and noted to have frequent paroxysms of likely multifocal atrial tachycardia as well as atrial fibrillation with heart rate responses of 120s. Atrial fibrillation: The patient describes episodes of palpitations occurring or several years which may likely represent long-standing paroxysmal atrial fibrillation. He had a good response with IV metoprolol and we will therefore initiate by mouth metoprolol at 25 mg by mouth twice a day. An echocardiogram was performed which demonstrated normal cardiac structure and function. The patient's [id number] score is 2 (age, female), and she would therefore benefit from full anticoagulation. An agent such as a request 5 mg by mouth twice a day may be used cleared by surgery. As the patient has suboptimal heart rate control, we will continue monitoring on telemetry for further 24 hours. Postop hernia repair: Continue treatment as per surgery Thank you for allowing us to participate in the care of your patient. Please do not hesitate to contact us further with any questions. Sincerely, Reese Marcus MD [facility] Consult Acknowledgment - Thank you for your consult request.
[2016-08-30 16:20] VITALS: BP 90/60
[2016-08-30 23:55] VITALS: BP 90/50
--- NOTE | 2016-08-31 06:56 | PN- Student ---
AKANKSHA CHOI 08/31/16 0651: Subjective Subjective: The patient reports being comfortable, denies any chest/abdominal pain, SOB, palpatations, headaches/dizziness, n/v. Is tolerating regular diet well. Has had one bowel movement overnight, is voiding and has been OOB to ambulate the floor multiple times last night. Is hoping to go home today. Objective Objective: Vital Signs Result Date Time Pulse Ox 92 08/30 2354 B/P 90/50 08/30 2354 O2 Delivery Nasal Cannula 08/30 2354 Temp 99.0 08/30 2354 Pulse 95 08/30 2354 Resp 20 08/30 2354 O2 Flow Rate 2.0L 08/30 0403 Intake & Output 08/31 0000 08/30 1600 08/30 0800 Intake Total 848 570 2485 Output Total 625 700 Balance 450 175 500 Intake, IV 200 600 Intake, Oral 250 800 600 Output, Urine 625 700 General: awake, alert, oriented, NAD HEENT: atraumatic, neck midline, carotid pulses 2+ and equal, no bruits, no lymphadenopathy Lungs: CTAB, good air movement, no wheeze/rhonchi/rales Heart: RRR, no M/R/G, no thrills, PMI non-palpable, Heart monitor on Abdomen: soft, non-distended, normoactive bowel sounds, slightly tender to palpation near incision site and in epigastric region, dressing lightly stained but dry and intact Extremities: radial/DP pulses 2+, warm, no erythema/edema, no calf tenderness bilaterally, no clubbing, capillary refill not assessed due to nail estonian present. Results Results: Laboratory Tests 08/31/16 0630: Sodium Pending, Potassium Pending, Chloride Pending, Carbon Dioxide Pending, Anion Gap Pending, BUN Pending, Creatinine Pending, BUN/Creatinine Ratio Pending , Magnesium Pending 08/30/16 0855: Anion Gap 7, Estimated GFR > 60, BUN/Creatinine Ratio 22.5, Phosphorus 2.8, Magnesium 1.1 L, CBC w Diff NO MAN DIFF REQ, RBC 3.65 L, MCV 82.1, MCH 27.7, RDW 16.3 H, MPV 9.3, Gran % 79.6 H, Lymphocytes % 10.8 L, Monocytes % 6.9, Eosinophils % 2.5, Basophils % 0.2, Absolute Granulocytes 3.6, Absolute Lymphocytes 0.5 L, Absolute Monocytes 0.3, Absolute Eosinophils 0.1, Absolute Basophils 0, PUBS MCHC 33.8 08/30/16 0610: Troponin I < 0.01, TSH 8.500 H, Free T4 1.56, Total T3 1.02, Thyroglobulin Antibody < 15, Thyroid Peroxidase Ab < 28 08/30/16 0600: Troponin I Cancelled 08/29/16 1223: Anion Gap 10, Estimated GFR > 60, BUN/Creatinine Ratio 23.8, Troponin I < 0.01, TSH 4.370 H, Thyroxine (T4) 14.0 H, Total T3 1.01, CBC w Diff MAN DIFF ORDERED , RBC 3.88 L, MCV 82.7, MCH 27.9, RDW 17.2 H, MPV 8.1, Gran % 86.7 H, Lymphocytes % 7.9 L, Monocytes % 4.6, Eosinophils % 0.6, Basophils % 0.2, Absolute Granulocytes 3.7, Segmented Neutrophils 66, Band Neutrophils 16 H, Absolute Lymphocytes 0.3 L, Lymphocytes 9 L, Monocytes 9, Absolute Monocytes 0.2, Absolute Eosinophils 0, Absolute Basophils 0, Platelet Estimate DECREASED, Anisocytosis 1+, PUBS MCHC 33.7 08/29/16 0649: CBC w Diff NO MAN DIFF REQ, RBC 4.07 L, MCV 83.0, MCH 27.9, RDW 16.8 H, MPV 8.8, Gran % 78.6 H, Lymphocytes % 9.1 L, Monocytes % 10.1 H, Eosinophils % 1.9, Basophils % 0.3, Absolute Granulocytes 3.8, Absolute Lymphocytes 0.4 L, Absolute Monocytes 0.5, Absolute Eosinophils 0.1, Absolute Basophils 0, PUBS MCHC 33.6 Assessment/Plan Assessment: This is a 65 y/o female POD # 2 open ventral hernia repair with PMH significant for hepatitis C, fibromyalgia, anxiety and post-operative paroxysmal atrial tachycardia and afib, which has improved with metoprolol. She has returned to full bowel function and is ambulating well post-op. Plan: Diet: continue regular diet Pain: Manage with morphine PRN DVT ppx: OOB to ambulate, elequis 5mg BID to start this am per Dr. Moore (?) Abx: none Continue electronic device monitor Continue beta lisandro for tachycardia Will discuss with attending YARITZA GARCIA 08/31/16 0820: Assessment/Plan Assessment: Agree with student assessment. Plan to include: D/C IV morphine, must be able to control pain with po pain med prior to discharge D/C Vicodin and change to oxycodone, pt with hx of liver disease, will try to limit acetaminophen Eliquis to start today Will continue to watch blood pressure, if running low, will consider changing dose of metoprolol to 12.5 bid versus 25, but will discuss with cardiology prior to making that change. Will discuss discharge plan with Dr. Long
--- NOTE | 2016-08-31 08:22 | PN- Endocrinology ---
Assessment/Plan Assessment: Patient underwent open ventral hernia repair on 08/29/2016 which is complicated by postoperative arrhythmia, A. fib versus MAT. She had a run of nonsustained V. tach and persistent tachycardia to approximately 120 bpm afterwards yesterday morning . Blood work showed TSH 4.370, T4 14 and TT3 1.01. Repeat TFT done on showed TSH 8.5, free T4 1.56 and TT3 1.02 and her thyroid antibody panel is negative. She doesn't have hx of thyroid disorders or positive family hx of thyroid disorders. But she has lost approximately 15 pounds over the winter without significant reason. The abnormal TFT suggests either sick euthyroid changes vs primary hypothyroidism. At this point, the abnormal TFT is not the cause of patient's arrhythmia. Plan: 1. repeat TSH, free T4 and TT3 in one week ( please give patient a lab slip if she goes home today and please make sure that I will get a copy of the report); 2. f/u in office after discharge. The plan has been discussed with patient. Subjective Subjective: She feels well this morning and would like to go home today. Objective Last 24 Hrs of Vital Signs/I&O Vital Signs Date Time Temp Pulse Resp B/P B/P Pulse O2 O2 Flow FiO2 Mean Ox Delivery Rate 08/30 2355 99.0 95 20 90/50 92 Nasal Cannula 08/30 2039 118 100/58 08/30 1620 98.5 124 20 90/60 92 08/30 1232 99.1 118 92/52 Intake & Output 08/31 1600 08/31 0800 08/31 0000 Intake Total 320 450 Output Total Balance 320 450 Intake, IV 200 Intake, Oral 320 250 Number 1 Bowel Movements Results Pertinent Lab/Pablo Results: Laboratory Tests 08/31 08/30 0630 0855 Chemistry Sodium (137 - 145 mmol/L) 132 L 135 L Potassium (3.5 - 5.1 mmol/L) 3.3 L 3.9 Chloride (98 - 107 mmol/L) 100 101 Carbon Dioxide (22 - 30 mmol/L) 29 27 Anion Gap (5 - 16) 4 L 7 BUN (7 - 17 mg/dL) 14 18 H Creatinine (0.5 - 1.0 mg/dL) 0.7 0.8 Estimated GFR (>60 ml/min) > 60 > 60 BUN/Creatinine Ratio (7 - 25 %) 20.0 22.5 Phosphorus (2.5 - 4.5 mg/dL) 2.8 Magnesium (1.6 - 2.3 mg/dL) 1.7 1.1 L Hematology CBC w Diff NO MAN DIFF REQ WBC (4.8 - 10.8 /CUMM) 4.5 L RBC (4.20 - 5.40 /CUMM) 3.65 L Hgb (12.0 - 16.0 G/DL) 10.1 L Hct (37 - 47 %) 30.0 L MCV (81.0 - 99.0 FL) 82.1 MCH (27.0 - 31.0 PG) 27.7 RDW (11.5 - 14.5 %) 16.3 H Plt Count (130 - 400 /CUMM) 89 L MPV (7.4 - 10.4 FL) 9.3 Gran % (42.2 - 75.2 %) 79.6 H Lymphocytes % (20.5 - 51.1 %) 10.8 L Monocytes % (1.7 - 9.3 %) 6.9 Eosinophils % (0 - 5 %) 2.5 Basophils % (0.0 - 2.0 %) 0.2 Absolute Granulocytes (1.4 - 6.5 /CUMM) 3.6 Absolute Lymphocytes (1.2 - 3.4 /CUMM) 0.5 L Absolute Monocytes (0.10 - 0.60 /CUMM) 0.3 Absolute Eosinophils (0.0 - 0.7 /CUMM) 0.1 Absolute Basophils (0.0 - 0.2 /CUMM) 0 PUBS MCHC (33.0 - 37.0 G/DL) 33.8
[2016-08-31 08:29] VITALS: BP 90/58
[2016-08-31] MEDS ORDERED: ROXICODONE5 M1 PO (08:39)
[2016-08-31] MEDS ORDERED: METOPROLOL TART25 M1 PO (08:39)
[2016-08-31] MEDS ORDERED: ELIQUIS5 M1 PO (08:39)
[2016-08-31 08:56] VITALS: BP 90/58
--- NOTE | 2016-08-31 12:36 | PN- Cardiology ---
Subjective Subjective: Patient resting comfortably. Denies chest pain or dyspnea. Minimal palpitations. Objective Vital Signs and I&Os Vital Signs Date Time Temp Pulse Resp B/P B/P Pulse O2 O2 Flow FiO2 Mean Ox Delivery Rate 08/31 0856 70 20 90/58 08/31 0829 97.8 70 20 90/58 93 Room Air 08/30 2355 99.0 95 20 90/50 92 Nasal Cannula 08/30 2039 118 100/58 08/30 1620 98.5 124 20 90/60 92 08/30 1232 99.1 118 92/52 Intake & Output 08/31 1600 08/31 0800 08/31 0000 08/30 1600 08/30 0800 08/30 0000 Intake Total 320 403 906 6255 1200 Output Total 625 700 3 Balance 320 450 897 461 0583 Intake, IV 200 600 600 Intake, Oral 320 250 800 600 600 Number 1 Bowel Movements Output, Other 3 Output, Urine 625 700 Physical Exam: General: no apparent distress. Alert. Eyes: No obvious scleral icterus. HEENT: No jugular venous distention or abnormal jugular venous pulsations. Cardiovascular: Normal intensity S1/S2. Regular. Respiratory: Lungs clear to auscultation bilaterally. Abdomen: no guarding . Musculoskeletal: No clubbing or cyanosis noted, no edema Skin: Warm Neurologic: No gross focal deficits noted. Current Medications: Current Medications Sig/Monisha Start time Last Medication Dose Route Stop Time Status Admin Acetaminophen/ 1 TAB Q4P PRN 08/29 1530 DC 08/29 Hydrocodone Bitart PO 7 Acetaminophen/ 2 TAB Q4P PRN 08/29 1530 DC Hydrocodone Bitart PO Alprazolam 0.5 MG TID PRN 08/29 1600 AC 08/31 PO 09/05 1559 0509 Apixaban 5 MG BID 08/31 1000 AC 08/31 PO 0854 Docusate Sodium 100 MG DAILY NEEDED PRN 08/29 1530 AC PO Heparin Sodium 5,000 UNIT Q8 08/29 2200 AC 08/31 (Porcine) SC 08/31 1500 0513 Ibuprofen 400 MG Q6P PRN 08/29 1345 AC PO Ketorolac 15 MG Q8P PRN 08/29 1530 AC 08/29 Tromethamine IV 1827 Magnesium Sulfate 1 GM Q2H 08/30 1330 DC 08/30 Dextrose/Water 100 ML IV 08/30 1729 2033 Metoprolol Tartrate 25 MG BID 08/30 1030 AC 08/31 PO 0856 Morphine Sulfate 2 MG Q1P PRN 08/29 1530 DC 08/31 IV 0217 Ondansetron HCl 4 MG Q6P PRN 08/29 1530 AC IV Oxycodone HCl 5 MG Q4P PRN 08/31 0845 AC PO Oxycodone HCl 10 MG Q4P PRN 08/31 0845 AC 08/31 PO 0856 Polyethylene Glycol 17 GM DAILY NEEDED PRN 08/29 1530 AC PO Promethazine HCl 12.5 MG Q6P PRN 08/29 1530 AC IV 09/05 1329 Senna 374 MG AT BEDTIME NEED.. 08/29 1530 AC PO Zolpidem Tartrate 10 MG .STK-MED ONE 08/31 2031 DC PO 08/30 2032 Zolpidem Tartrate 10 MG AT BEDTIME NEED.. 08/29 2200 AC 08/30 PO 0017 Results Last 48 Hrs of Labs/Mics: Laboratory Tests 08/31/16 0630: Anion Gap 4 L, Estimated GFR > 60, BUN/Creatinine Ratio 20.0, Magnesium 1.7 08/30/16 0855: Anion Gap 7, Estimated GFR > 60, BUN/Creatinine Ratio 22.5, Phosphorus 2.8, Magnesium 1.1 L, CBC w Diff NO MAN DIFF REQ, RBC 3.65 L, MCV 82.1, MCH 27.7, RDW 16.3 H, MPV 9.3, Gran % 79.6 H, Lymphocytes % 10.8 L, Monocytes % 6.9, Eosinophils % 2.5, Basophils % 0.2, Absolute Granulocytes 3.6, Absolute Lymphocytes 0.5 L, Absolute Monocytes 0.3, Absolute Eosinophils 0.1, Absolute Basophils 0, PUBS MCHC 33.8 08/30/16 0610: Troponin I < 0.01, TSH 8.500 H, Free T4 1.56, Total T3 1.02, Thyroglobulin Antibody < 15, Thyroid Peroxidase Ab < 28 08/30/16 0600: Troponin I Cancelled Recent Imaging Studies: Telemetry tracings were personally reviewed and shows sinus rhythm with SVT bursts Echo: Normal left and right ventricular systolic function. No significant valvular abnormalities noted. Andrew Acosta M.D. (Electronically Signed) Final Date: 30 August 2016 08:05 Assessment/Plan Assessment/Plan 1. Newly diagnosed paroxysmal atrial fibrillation with a history of prior palpitations 2. Status post ventral hernia repair 08/2016 3. History of CAD? 4. History of tuberculosis/fibromyalgia/depression 5. Hypomagnesemia/Mild hypokalemia Patient currently in sinus rhythm with bursts of supraventricular tachycardia on telemetry. Would not uptitrate beta lisandro dosing at this time as blood pressure is borderline. She denies any dizziness at this time. Now on full anticoagulation with Eliquis. Can discontinue her subcutaneous heparin at this time. Replete potassium/magnesium as necessary. Will require cardiology follow- up regularly after discharge. George Howe MD [facility] Continue telemetry? No
--- NOTE | 2016-09-03 13:10 | Operative Report ---
Operative/Inv Procedure Report Surgery Date: 08/29/16 Name of Procedure: Open repair of ventral incisional hernia with bilateral rectus muscle fascial advancement flaps, no mesh Pre-Operative Diagnosis: Ventral incisional hernia Post-Operative Diagnosis: Same Estimated Blood Loss: less than 50ml Surgeon/Light Cleaner: MACY KATE,RAJEEV NOWAK Anesthesia: general endotracheal tube Operative/Procedure Note Note: Patient was placed on the OR table in the supine position. After successful induction of general anesthesia, another timeout was done, IV antibiotics given, the abdomen was clipped prepped and draped in the usual sterile fashion. The hernia was essentially beneath the midline laparotomy scar, measuring about 12 cm long. This attenuated scar was infiltrated local anesthetic and then the incision was made with a 10 blade, excising some of the scar. This was deepened with cautery through the subcutaneous fat and the herniated bowel and omentum and overlying sac were dissected circumferentially off the fascia, defining the true edges of the defect. During this time it was noted that the bowel was very fragile there were numerous adhesions and she was quite thin which exaggerated the effect of her splenomegaly which reached almost to the midline pushing the bowel it was very firm. To do this the thickened attenuated sac was mostly excised and the adherent omentum to the anterior peritoneal surface was also along with some adhesions between the sac and the peritoneum and the bowel, we needed to clear off beyond the edges of the defect to make room for the mesh. At this point we decided not to use mesh because of my concern for the friable bowel beneath it and the spleen. The rectus muscle itself was intact and well-developed, but at this point could not be pulled to the midline without significant tension. After clearing off all the edges we would gently pull remnants of fascia together in the midline where available, with a combination of interrupted 2-0 Maxon 2-0 Prolene and 2-0 Vicryl trying to stay symmetric, some areas especially on the ends we were able to close all the way to the midline and some towards the middle still had gaps. Then to create the advancement flaps I deliberately cut into the rectus sheath anteriorly about an inch off the medial edges all the way around and then you would mobilize that fascia to the midline and close it again on top, with a combination of Maxon Prolene and Vicryl as mentioned above, the rectus muscle was advanced bilaterally to the midline, each side moving 3-4 cm each, closing the defect completely without tension in her case probably because she was so thin and had lost weight. Then this was covered by sewing together remnants of excised hernia sac and attenuated fascia, the superficial fascia and subcutaneous layers were also reapproximated using interrupted 3-0 Vicryl suture. The skin was reapproximated with olga having brought it together and a few areas with interrupted 3-0 Vicryl sutures subdermally. This was covered with gauze and tape. EBL minimal lap and sponge counts correct wound expectancy clean IV fluids crystalloid complications none patient tolerated the procedure well was awakened extubated returned to the recovery room in satisfactory condition.
== END 2016-08-31 14:30 | DRG 982 ==
LOC: STS 01:09 → 1NO 12:52 → PACUH 12:52 → ENRESERV 13:16 → ENTRNSPT 14:23 → EDTRNSPTSTS 14:47 → CMPTRNSPT 15:13 → 1NO 15:15 → ENPENDDIS 08-31 13:03 → 1NO 08-31 14:30
PROVIDERS: Physician Assistant Surgical; ADMIT Surgery
PROC: 0WQF0ZZ Repair Abdominal Wall, Open Approach (ICD-10-PCS; principal; 2016-08-29)
PROC: 0KXK0ZZ Transfer Right Abdomen Muscle, Open Approach (ICD-10-PCS; principal; 2016-08-29)
PROC: 0KXL0ZZ Transfer Left Abdomen Muscle, Open Approach (ICD-10-PCS; principal; 2016-08-29)
PROC: 3E0T3CZ (ICD-10-PCS; 2016-08-29)
DX: I97.89 Other postprocedural complications and disorders of the circulatory system, not elsewhere classified (principal); I47.2 Ventricular tachycardia; I47.1 Supraventricular tachycardia; E83.42 Hypomagnesemia; Z68.1 Body mass index [BMI] 19.9 or less, adult; K43.2 Incisional hernia without obstruction or gangrene; R63.4 Abnormal weight loss; F17.210 Nicotine dependence, cigarettes, uncomplicated; B18.2 Chronic viral hepatitis C; E87.6 Hypokalemia; M79.7 Fibromyalgia; Y83.8 Other surgical procedures as the cause of abnormal reaction of the patient, or of later complication, without mention of misadventure at the time of the procedure; I25.10 Atherosclerotic heart disease of native coronary artery without angina pectoris; F41.9 Anxiety disorder, unspecified; Z86.11 Personal history of tuberculosis
CPT/HCPCS: 1NSP; 36415; 82436; 86376; 86800; 93005; 93010; 93306; J0131; J0690; J1644; J1885; J2405; J2550; J7042

== ENCOUNTER → 2017-05-18 | Day surgery (SDC) | payer OTHER ==
[~2017-05-18] VITALS: Ht 172.7 cm; Wt 45.4 kg
[~2017-05-18] MED LIST: AMBIEN10 M1 PO; ELIQUIS5 M1 PO; LYRICA75 M1 PO; METOPROLOL TART25 M1 PO; PERCOCET 5-3251 EACH PO; ROXICODONE5 M1 PO; VITAMIN B-121000 MC3 PO; VITAMIN D250000 UNIT PO; XANAX0.5 M1 PO; ZOLOFT50 M1 PO
--- NOTE | 2017-05-18 10:11 | RADIOLOGY REPORT ---
EXAMINATION: XR PORTABLE CHEST CLINICAL INFORMATION: Status post bronchoscopy. In PACU. COMPARISON: PET/CT performed 04/24/2017. CT from 01/23/2017. TECHNIQUE: Portable frontal view of the chest was obtained. FINDINGS: Cardiac leads overlie the chest. The lungs are hyperexpanded with known emphysema. Right apical pleural thickening/scarring. Hazy right basilar opacity noted. The medial right lower lobe abnormality seen on prior imaging is not well-defined on this radiograph. There is minimal tenting of the right hemidiaphragm. No pleural effusion or pneumothorax. The cardiomediastinal silhouette is unchanged. IMPRESSION: Hyperexpanded lungs with known emphysema. Multiple chronic changes, particularly at the right apex and right base. Hazy right basilar opacity likely associated with consolidation seen on previous imaging at the right base.
--- NOTE | 2017-05-18 13:52 | Operative Report ---
Operative/Inv Procedure Report Surgery Date: 05/18/17 Name of Procedure: Bronchoscopy mediastinoscopy Pre-Operative Diagnosis: Mediastinal lymphadenopathy Post-Operative Diagnosis: Same Estimated Blood Loss: scant Surgeon/Food Handler: Estela Nguyen MD,Jasmeet Flores Anesthesia: general endotracheal tube Operative/Procedure Note Note: After placement of monitoring lines and induction of general anesthesia a fiberoptic bronchoscopy was performed through the endotracheal tube. The endobronchial anatomy was normal. There were no mucosal lesions and no anatomical abnormalities. The patient's neck and chest were then prepped and draped in a sterile fashion. An incision was made above the sternal notch and carried down to pretracheal fascia. The posterior mediastinal cleared easily with blunt dissection. The mediastinoscope was advanced to the level of the alba. Dissection in the right paratracheal area allowed identification of level II and level IV lymph nodes. A apprenticeship representative specimen of level IV lymph node was sent for frozen section and it showed nothing diagnostic. There were no granulomas and no evidence of the metastatic cancer. Further specimens were taken from the 2 lymph nodes stations and sent for cultures for permanent histology and for flow cytometry. Hemostasis was achieved with electrocautery and with packing that was left behind because of a fair amount of oozing from the lymph node bed. The wound was then closed in layers with deep Vicryl suture followed by running Vicryl subarticular suture. The patient tolerated the procedure well and was brought to recovery room awake and extubated in stable condition. CC: Omar KATE,Antonio Pardo
== END ==
LOC: STS 02:44
DX: C85.82 Other specified types of non-Hodgkin lymphoma, intrathoracic lymph nodes (principal); B18.2 Chronic viral hepatitis C; K74.60 Unspecified cirrhosis of liver; I10 Essential (primary) hypertension; M79.7 Fibromyalgia; F17.200 Nicotine dependence, unspecified, uncomplicated
CPT/HCPCS: 87070; 87075; 36415; 71045; 88184; 88305; 88331; 93005; 93010; C9399; J0690; J2250